=== PATIENT | female | born 1965 | race Caucasian/White ===

== ENCOUNTER 2019-07-16 10:20 | Outpatient (CLI) | payer BC, SELFPAY ==
--- NOTE | 2019-07-16 10:23 | US_ITS ---
WS: [id number] ADDITIONAL VIEWS LEFT DIGITAL MAMMOGRAM WITH CAD LEFT breast ultrasound, limited HISTORY: ABNORMAL MAMMOGRAM COMPARISON: 04/03/2019 Technique: MLO and ML. Spot MLO. Breast composition: There are scattered areas of fibroglandular density. Asymmetry in the superior L EFT breast persists but appears less masslike. Ultrasound will be performed. This may be within the u pper outer or upper inner quadrant. Both quadrants will be evaluated by ultrasound. LEFT breast ultrasound, limited. At 2:00 there is a small simple cyst measuring 9 x 3 mm. There is a hypoechoic area without through t ransmission at 10:00 measuring 8 x 4 mm. No area of distortion or shadowing. Suspect this 10:00 abnor mality may be a complex cyst or fibroadenoma. US/US breast LT limited* [id number] IMPRESSION: BI-RADS: 3-Probably Benign FOLLOW UP: 6 Month Follow-up Recommend additional imaging in 6 months. LEFT mammogram and ultrasound breast to follow if the abnormality persists on mammography.
== END 2019-07-16 10:21 | disposition home or self-care (01) ==
LOC: RADSHAW 10:20
PROVIDERS: Family Provider Registered Nurse; PCP Registered Nurse; Visit Provider Registered Nurse
DX: R92.8 Other abnormal and inconclusive findings on diagnostic imaging of breast (principal); N60.02 Solitary cyst of left breast
CPT/HCPCS: 76642; 77065

== ENCOUNTER → 2020-03-31 08:50 | Outpatient (BNVA) | payer BC, SELFPAY | PROVIDERS: Family Provider Registered Nurse; PCP Registered Nurse; Visit Provider Registered Nurse | DX: F32.9 Major depressive disorder, single episode, unspecified (principal); F41.9 Anxiety disorder, unspecified; J44.9 Chronic obstructive pulmonary disease, unspecified | CPT/HCPCS: 80053; 80061; 85025 ==

== ENCOUNTER → 2020-04-24 09:32 | Outpatient (BNVA) | payer BC, SELFPAY | PROVIDERS: PCP Registered Nurse; Visit Provider Registered Nurse | DX: Z20.828 Contact with and (suspected) exposure to other viral communicable diseases (principal) | CPT/HCPCS: 87635 ==

== ENCOUNTER 2020-04-27 12:38 | Outpatient (CLI) | payer BC, SELFPAY ==
--- NOTE | 2020-04-27 14:49 | PFTS_ITS ---
Date of Study:04/27/20 Date of Dictation: 04/29/2020 MECHANICS: Forced vital capacity (FVC) is normal. Forced expiratory volume in one second (FEV1) is normal 84% FEV1/FVC is reduced 58 FEF 25-75% significantly reduced 34% No postbronchodilator study done as patient already took treatment before this test. FLOW VOLUME LOOP: Mild scooping of end expiratory limb suggestive of small airway disease . LUNG VOLUMES: Not measured DIFFUSING CAPACITY FOR CARBON MONOXIDE: Not measured . INTERPRETATION: The spirometry suggestive of obstructive ventilatory defect. Please correlate clinically MTDD
== END 2020-04-27 12:39 | disposition home or self-care (01) ==
LOC: RT 12:39
PROVIDERS: PCP Registered Nurse; Visit Provider Registered Nurse
DX: J44.9 Chronic obstructive pulmonary disease, unspecified (principal); R06.02 Shortness of breath
CPT/HCPCS: 94010

== ENCOUNTER → 2020-05-05 10:59 | Outpatient (BNVA) | payer BC, SELFPAY | PROVIDERS: PCP Registered Nurse; Visit Provider Registered Nurse | DX: R50.9 Fever, unspecified (principal); Z20.828 Contact with and (suspected) exposure to other viral communicable diseases | CPT/HCPCS: 87400; 87635 ==

== ENCOUNTER 2020-05-20 15:07 | Outpatient (CLI) | payer BC, SELFPAY ==
--- NOTE | 2020-05-20 15:18 | US_ITS ---
WS: [id number] DIAGNOSTIC BILATERAL DIGITAL MAMMOGRAM WITH CAD LEFT breast ultrasound, limited HISTORY: LT BREAST ASYMMETRY COMPARISON: 04/03/2019 and 07/16/2019 TECHNIQUE: Bilateral craniocaudad, mediolateral oblique, and mediolateral views are submitted. Spot c ompression LEFT MLO. Computer aided detection utilized. Breast composition: There are scattered areas of fibroglandular density. Lobulated asymmetry in the c entral LEFT breast posterior to the nipple on the CC projection. Not currently visualized on the prio r study. This is probably posterior to the nipple on the MLO projection. LEFT breast ultrasound, limited. Hypoechoic nodule at 12:00, 2 cm from the nipple. Corresponds to the mammographic abnormality which i s slightly lobulated. Nodule measures 9 x 4 x 6 mm. No increased vascularity. There are few at additi onal smaller hypoechoic nodules and lymph nodes and cysts. No additional suspicious finding. US/US breast LT limited* [id number] IMPRESSION: BI-RADS: 4-Suspicious Finding-Biopsy Should Be Considered FOLLOW UP: Biopsy Recommended Ultrasound-guided biopsy recommended of the 9 mm nodule at 12:00 LEFT breast.
--- NOTE | 2020-05-20 15:30 | MM_ITS ---
WS: [id number] DIAGNOSTIC BILATERAL DIGITAL MAMMOGRAM WITH CAD LEFT breast ultrasound, limited HISTORY: LT BREAST ASYMMETRY COMPARISON: 04/03/2019 and 07/16/2019 TECHNIQUE: Bilateral craniocaudad, mediolateral oblique, and mediolateral views are submitted. Spot c ompression LEFT MLO. Computer aided detection utilized. Breast composition: There are scattered areas of fibroglandular density. Lobulated asymmetry in the c entral LEFT breast posterior to the nipple on the CC projection. Not currently visualized on the prio r study. This is probably posterior to the nipple on the MLO projection. LEFT breast ultrasound, limited. Hypoechoic nodule at 12:00, 2 cm from the nipple. Corresponds to the mammographic abnormality which i s slightly lobulated. Nodule measures 9 x 4 x 6 mm. No increased vascularity. There are few at additi onal smaller hypoechoic nodules and lymph nodes and cysts. No additional suspicious finding. MM/[place] [id number] IMPRESSION: BI-RADS: 4-Suspicious Finding-Biopsy Should Be Considered FOLLOW UP: Biopsy Recommended Ultrasound-guided biopsy recommended of the 9 mm nodule at 12:00 LEFT breast.
== END 2020-05-20 15:08 | disposition home or self-care (01) ==
LOC: RADSHAW 15:10
PROVIDERS: PCP Registered Nurse; Visit Provider Registered Nurse
DX: N64.89 Other specified disorders of breast (principal); N63.25 Unspecified lump in the left breast, overlapping quadrants
CPT/HCPCS: 76642; 77066

== ENCOUNTER 2020-05-27 12:06 | Outpatient (CLI) | payer BC, SELFPAY ==
--- NOTE | 2020-05-27 13:00 | US_ITS ---
WS: [id number] ULTRASOUND-GUIDED LEFT BREAST BIOPSY HISTORY: 9mm LT breast nodule at 12:00 position COMPARISON: 05/20/2020 Procedure, risks and complications are explained to the patient. Medications are reviewed. Consent is obtained. The mass in the LEFT breast is localized with ultrasound. Mass localized to 12:00, 2 cm from the nipp le. Skin is cleansed with ChloraPrep and anesthetized with 1% buffered lidocaine. Small dermatome is made. Under sterile conditions mass is biopsied with a 14-gauge Achieve needle. Multiple core biopsie s are performed. Material placed in formalin and sent to pathology for review. No complications encou ntered. Breast tissue marker (Bard ultrasound enhanced ribbon): Single. Patient left the radiology suite with no complications. Patient is instructed to return to [facility] or [facility] with any concerns. US/[id number] IMPRESSION: 1. Uncomplicated core needle biopsy LEFT breast mass at 12:00. PATHOLOGY: Benign breast tissue with usual ductal hyperplasia and stromal scler osis. No malignancy. RECOMMENDATION: Diagnostic LEFT mammogram follow-up in 6 months with possible u ltrasound.
== END 2020-05-27 12:07 | disposition home or self-care (01) ==
PROVIDERS: PCP Registered Nurse; Visit Provider Registered Nurse
DX: N63.25 Unspecified lump in the left breast, overlapping quadrants (principal); N62 Hypertrophy of breast
CPT/HCPCS: 19083; 88305

== ENCOUNTER → 2021-05-31 11:15 | Outpatient (BNVA) | payer OTHER, SELFPAY | PROVIDERS: PCP Registered Nurse; Visit Provider Registered Nurse | DX: Z01.419 Encounter for gynecological examination (general) (routine) without abnormal findings (principal); Z13.6 Encounter for screening for cardiovascular disorders | CPT/HCPCS: 80053; 80061; 85025; 87070; 87205; 88175 ==

== ENCOUNTER 2021-08-16 13:12 | Outpatient (CLI) | payer OTHER, SELFPAY ==
--- NOTE | 2021-08-16 13:21 | MM_ITS ---
WS: [id number] Bilateral diagnostic 3D tomosynthesis digital mammogram, 08/16/2021 Clinical Data: R92.8 - Other abnormal and inconclusive findings on diagn... Comparison: 05/20/2020, 04/03/2019. Findings: The breast parenchymal pattern shows fibroglandular tissue. There is a biopsy clip clip in the left b reast. No spiculated masses or clustered calcifications are seen. There are no secondary signs of car cinoma. There are lymph nodes in the right axilla. MM/[place] [id number] Impression: 1. Negative bilateral mammograms unchanged. 2. Recommend left breast ultrasound. BIRADS: 1-Negative FOLLOW UP: 1 Year Follow-up The CAD checker dump grounds was used.
--- NOTE | 2021-08-16 13:21 | US_ITS ---
WS: [id number] Left breast ultrasound, 08/16/2021 Clinical Data: LT ABNORMAL MAMMOGRAM Comparison: Left breast ultrasound, 05/27/2020. Findings: In the 12 cm position 2 cm from the nipple there is a simple cyst measuring 0.42 x 0.61 x 0.83 cm. No masses or complex cysts are seen. US/US breast LT limited* [id number] Impression: 1. Simple left breast cyst at the 12:00 position. 2. Recommend annual screening mammograms. BIRADS: 2-Benign FOLLOW UP: 1 Year Follow-up
== END 2021-08-16 13:13 | disposition home or self-care (01) ==
LOC: RADSHAW 13:13
PROVIDERS: PCP Registered Nurse; Visit Provider Registered Nurse
DX: R92.8 Other abnormal and inconclusive findings on diagnostic imaging of breast (principal); N60.02 Solitary cyst of left breast
CPT/HCPCS: 76642; 77062

== ENCOUNTER → 2023-12-25 08:18 | Outpatient (BNVA) | payer OTHER, SELFPAY | PROVIDERS: PCP Registered Nurse; Visit Provider Registered Nurse | DX: Z13.6 Encounter for screening for cardiovascular disorders (principal); E78.5 Hyperlipidemia, unspecified | CPT/HCPCS: 80053; 80061; 85025; 87624 ==

== ENCOUNTER 2024-01-22 11:10 | Outpatient (CLI) | payer OTHER, SELFPAY ==
--- NOTE | 2024-01-22 11:30 | MM_ITS ---
WS: [id number] BILATERAL 3D TOMOSYNTHESIS DIGITAL SCREENING MAMMOGRAPHY WITH CAD CLINICAL INFORMATION: Z12.39 - Encounter for other screening for malignant neop... HISTORY: Screening mammogram. No current complaints. COMPARISON: 08/16/2021 TECHNIQUE: Bilateral CC and MLO views. FINDINGS: The breasts are composed of heterogeneous fibroglandular density tissue, which can limit the detectio n of small underlying mass lesions. Biopsy clip LEFT breast. New ovoid nodule measuring 7 mm central RIGHT breast at the 6 o'clock position. Recommend RIGHT breast diagnostic mammography and ultrasound. Unremarkable LEFT breast. MM/[place] [id number] IMPRESSION: BI-RADS: 0-Incomplete: Need additional imaging evaluation FOLLOW UP: Need Additional Imaging Recommend RIGHT breast diagnostic mammography and ultrasound.
== END 2024-01-22 11:11 | disposition home or self-care (01) ==
PROVIDERS: PCP Registered Nurse; Visit Provider Registered Nurse
DX: Z12.31 Encounter for screening mammogram for malignant neoplasm of breast (principal); Z12.39 Encounter for other screening for malignant neoplasm of breast
CPT/HCPCS: 77063; 77067

== ENCOUNTER 2024-01-29 09:14 | Outpatient (CLI) | payer SELFPAY ==
--- NOTE | 2024-01-29 09:30 | CT_ITS ---
WS: [id number] LDCT LUNG CANCER SCREENING HISTORY: Z13.6 - Encounter for screening for cardiovascular disorders TECHNIQUE: Axial imaging performed from the apices to 1 cm below the costophrenic angles. Coronal and sagittal reformats are submitted with axial MIP series. All CT scans at [facility] use at least one of these dose optimization techniques: automated exposure control; mA and/or kV adjustment per patient size (includes targeted exams where dose is matched to clinical indication); or iterativ e reconstruction. DLP: 75.01 mGy.cm DIvol: Mean CTDIvol: 1.60 (mGy) COMPARISON: None available. Diagnostic quality: Satisfactory Lungs: Biapical pleural thickening and fibrosis with scarring. No pulmonary mass or nodule. There are a few tiny micronodules. No endobronchial lesions. Heart: Normal size heart with no pericardial effusion.. Other findings: Mild atherosclerosis aorta. No mediastinal or hilar adenopathy. Normal size pulmonary artery. No hiatal hernia. No adrenal mass. CT/CT lung screening [id number] IMPRESSION: LUNG-RADS: 2-Benign Appearance or Behavior FOLLOW UP: 12 Month: Continue annual screening with LDCT OTHER FINDINGS (S MODIFIER): None.
== END 2024-01-29 09:15 | disposition home or self-care (01) ==
LOC: RAD 09:18
PROVIDERS: PCP Registered Nurse; Visit Provider Registered Nurse
DX: Z12.2 Encounter for screening for malignant neoplasm of respiratory organs (principal); J92.9 Pleural plaque without asbestos; J84.10 Pulmonary fibrosis, unspecified
CPT/HCPCS: 71271; 80053; 80061; 85025; 87624

== ENCOUNTER 2024-02-21 09:19 | Day surgery (SDC) | payer OTHER, SELFPAY ==
--- NOTE | 2024-02-21 02:02 | ANES.PREANE2 ---
Pre-Anesthetic Assessment Height/Weight: Height 5 ft 8 in Preop Diagnosis: GERD Operation Date: 02/21/24 10:15 Proposed Procedures p EGD- 17923, 67086 , K59.00, K21.9(Not Applicable) - DO cabrera Recinos COLONOSCOPY-(Not Applicable) - Horacio Hernandez DO Social No alcohol Prior smoker Exam alert, oriented x 3, clear to auscultation bilaterally and regular rate & rhythm Airway Submandibular: within normal limits Cervical ROM: within normal limits Mallampati: Class I Dentition: false Anesthetic Plan ASA status: 2 Anesthesia: MAC Other: No prior issues with anesthesia Completed bowel prep History of GERD on Protonix COPD, occasional inhaler use METs greater than 4 Plan for MAC anesthetic Medications/Allergies Home Medications Medication Instructions Recorded Confirmed Last Taken Type albuterol sulfate 2.5 mg/3 mL 2.5 mg (3 mL) inhalation Q4H PRN 06/20/23 02/19/24 1 Year Ago Rx (0.083 %) solution for nebulization bronchospasm #180 mL ~02/18/23 pantoprazole 40 mg tablet,delayed 40 mg PO BID 6 weeks #84 tabs 12/29/23 02/21/24 02/20/24 Rx release (Protonix) polyethylene glycol 3350 17 17 g PO DAILY 30 days #510 grams 12/29/23 02/21/24 02/20/24 Rx gram/dose oral powder (Miralax) clonazepam 0.5 mg tablet (Klonopin) 0.5 mg PO DAILY anxiety 30 days 01/29/24 02/21/24 02/20/24 Rx #30 tabs albuterol sulfate 90 mcg/actuation 1 inh inhalation QID PRN Shortness 02/19/24 02/19/24 02/19/24 History aerosol inhaler Of Breath gabapentin 100 mg capsule 100 mg PO BEDTIME 02/19/24 02/21/24 02/20/24 History sertraline 100 mg tablet 100 mg PO BEDTIME 02/19/24 02/21/24 02/20/24 History aspirin 81 mg chewable tablet 81 mg PO DAILY 02/21/24 02/21/24 02/19/24 History Allergies Allergy/AdvReac Type Severity Reaction Status Date / Time No Known Allergies Allergy Verified 02/19/24 08:49 [facility] Anesthesia Medical History (Updated 12/29/23 @ 09:23 by Horacio Hernandez DO) GERD (gastroesophageal reflux disease) Nontraumatic perforation of intestine 2011 History of severe acute respiratory syndrome coronavirus 2 (SARS-CoV-2) disease COPD, mild Anxiety and depression Surgical History (Updated 12/29/23 @ 09:23 by Horacio Hernandez DO) History of partial hysterectomy History of colon resection 2014 Hx of appendectomy Family History Other Diabetes Hypertension Social History Smoking and tobacco/nicotine status: former use of tobacco/nicotine Alcohol intake: never Substance/Drug Use: never Lives independently: No Household members: family Current occupational status: employed Sexually active: Yes Do you think of yourself as: Straight/Heterosexual Current gender identity: Female Data Anesthesia Cardiac Studies: No Data to Display
[2024-02-21 09:28] VITALS: BP 105/58; PULSE 81; RESP 18; TEMP 36.2; O2SAT 92
[2024-02-21 09:42] VITALS: BMI 28.8
[2024-02-21] MEDS: sodium chloride 0.9% 1,000 ML 30 ML IV (09:49)
--- NOTE | 2024-02-21 10:06 | PM.HP ---
Providers/Chief Complaint Primary Care Provider: MAGGIE Morel Chief Complaint: K59.00, K21.9 History of Present Illness Minna Noriega is a 58 year old female Review of Systems General: Reports: 10 or more systems reviewed and unremarkable except in HPI and below Medications/Allergies Home Medications Medication Instructions Recorded Confirmed Last Taken Type albuterol sulfate 2.5 mg/3 mL 2.5 mg (3 mL) inhalation Q4H PRN 06/20/23 02/19/24 1 Year Ago Rx (0.083 %) solution for nebulization bronchospasm #180 mL ~02/18/23 pantoprazole 40 mg tablet,delayed 40 mg PO BID 6 weeks #84 tabs 12/29/23 02/21/24 02/20/24 Rx release (Protonix) polyethylene glycol 3350 17 17 g PO DAILY 30 days #510 grams 12/29/23 02/21/24 02/20/24 Rx gram/dose oral powder (Miralax) clonazepam 0.5 mg tablet (Klonopin) 0.5 mg PO DAILY anxiety 30 days 01/29/24 02/21/24 02/20/24 Rx #30 tabs albuterol sulfate 90 mcg/actuation 1 inh inhalation QID PRN Shortness 02/19/24 02/19/24 02/19/24 History aerosol inhaler Of Breath gabapentin 100 mg capsule 100 mg PO BEDTIME 02/19/24 02/21/24 02/20/24 History sertraline 100 mg tablet 100 mg PO BEDTIME 02/19/24 02/21/24 02/20/24 History aspirin 81 mg chewable tablet 81 mg PO DAILY 02/21/24 02/21/24 02/19/24 History Allergies Allergy/AdvReac Type Severity Reaction Status Date / Time No Known Allergies Allergy Verified 02/19/24 08:49 PFSH Acute PFSH: Medical History (Updated 12/29/23 @ 09:23 by Horacio Hernandez DO) GERD (gastroesophageal reflux disease) Nontraumatic perforation of intestine 2011 History of severe acute respiratory syndrome coronavirus 2 (SARS-CoV-2) disease COPD, mild Anxiety and depression Surgical History (Updated 12/29/23 @ 09:23 by Horacio Hernandez DO) History of partial hysterectomy History of colon resection 2014 Hx of appendectomy Family History Other Diabetes Hypertension Social History Smoking and tobacco/nicotine status: former use of tobacco/nicotine Alcohol intake: never Substance/Drug Use: never Lives independently: No Household members: family Current occupational status: employed Sexually active: Yes Do you think of yourself as: Straight/Heterosexual Current gender identity: Female Vitals/I&O/Wt Last Vital Signs Temp 97.1 F L 02/21/24 09:28 Pulse 81 02/21/24 09:28 Resp 18 02/21/24 09:28 BP 105/58 02/21/24 09:28 Pulse Ox 92 02/21/24 09:28 O2 Del Method Room Air 02/21/24 09:28 Weight last 48 hrs Weight 190 lb A&P Assessment and plan (1) History of colon polyps: (2) GERD (gastroesophageal reflux disease): Plan EGD and colonoscopy Attestations Medical Necessity Statement*: Home Coding Level of Care Code Acute Code for Chg Fwd Diagnoses History of colon polyps Z86.010 GERD (gastroesophageal reflux disease) K21.9
[2024-02-21 10:34] VITALS: BP 104/62; PULSE 74; RESP 12; TEMP 36.6; O2SAT 92
[2024-02-21 10:42] VITALS: BP 109/60; PULSE 85; RESP 16; O2SAT 91
--- NOTE | 2024-02-21 11:01 | ANE.PACU2 ---
Inpatient post-anesthesia follow up: Airway intact: Yes Vital signs: Temperature 97.8 F Pulse Rate 85 Respiratory Rate 16 Blood Pressure 109/60 Pulse Oximetry 91 Oxygen Delivery Me thod Room Air Oxygen Flow Rate Fraction of Inspir ed Oxygen Hydration adequate: Yes Nausea and vomiting: No Pain level: 1 Mental status: Baseline
== END 2024-02-21 11:01 | disposition home or self-care (01) ==
PROVIDERS: PCP Registered Nurse; Visit Provider Surgery
PROC: 0DJ08ZZ Inspection of Upper Intestinal Tract, Via Natural or Artificial Opening Endoscopic (ICD-10-PCS; CPT 43235; principal; 2024-02-21 10:15)
PROC: 0DJD8ZZ Inspection of Lower Intestinal Tract, Via Natural or Artificial Opening Endoscopic (ICD-10-PCS; CPT 45378; 2024-02-21 10:15)
DX: K59.00 Constipation, unspecified (principal); K21.9 Gastro-esophageal reflux disease without esophagitis; K29.50 Unspecified chronic gastritis without bleeding; J44.9 Chronic obstructive pulmonary disease, unspecified; Z79.82 Long term (current) use of aspirin; Z87.891 Personal history of nicotine dependence
CPT/HCPCS: 43239; 45380; 88305; 88342; J2704; J7030

== ENCOUNTER → 2024-09-02 11:29 | Outpatient (BNVA) | payer OTHER, SELFPAY | PROVIDERS: PCP Registered Nurse; Visit Provider Registered Nurse | DX: J44.9 Chronic obstructive pulmonary disease, unspecified (principal); R06.02 Shortness of breath | CPT/HCPCS: 80048; 85025 ==